=== PATIENT | male | born 1985 | race Caucasian/White ===

== ENCOUNTER 2019-03-03 01:20 | Emergency (ER) | payer SELFPAY ==
[~2019-03-03] VITALS: Ht 182.9 cm; Wt 81.6 kg
[2019-03-03 01:37] VITALS: Ht 182.9 cm; Wt 81.6 kg
[2019-03-03 03:23] VITALS: BP 118/79
== END 2019-03-03 03:23 | disposition home or self-care (01) ==
LOC: ED 01:20
DX: F11.23 Opioid dependence with withdrawal (principal); F17.210 Nicotine dependence, cigarettes, uncomplicated
CPT/HCPCS: J2405